=== PATIENT | male | born 1955 | race Caucasian/White ===

== ENCOUNTER 2022-11-05 05:00 | Inpatient (IN) | payer MEDICARE, MEDICAID ==
[2022-10-30 12:12] LABS: BASOPHILS # (AUTO) 0.1 X10'3 (0-0.2); BASOPHILS % (AUTO) 1.1 % (0-1); EOSINOPHILS # (AUTO) 0.4 X10'3 (0-0.9); EOSINOPHILS % (AUTO) 4.6 % (0-6); LYMPHOCYTES # (AUTO) 2.7 X10'3 (1.1-4.8); LYMPHOCYTES % (AUTO) 30.4 % (21-51); MEAN CORPUSCULAR HEMOGLOBIN 33.2 PG (27.0-31.0); MEAN CORPUSCULAR HGB CONC 33.9 g/dL (33.0-36.5); MEAN CORPUSCULAR VOLUME 98.2 FL (78-98); MEAN PLATELET VOLUME 8.5 FL (7.4-10.4); MONOCYTES # (AUTO) 0.9 X10'3 (0-0.9); MONOCYTES % (AUTO) 10.4 % (2-12); NEUTROPHILS # (AUTO) 4.8 X10'3 (1.8-7.7); NEUTROPHILS % (AUTO) 53.5 % (42-75); PRE OP HEMATOCRIT 36.9 % (42.0-52.0); PRE OP HEMOGLOBIN 12.5 g/dL (14.0-17.9); PRE OP PLATELET COUNT 322 X10'3 (140-440); RED BLOOD COUNT 3.76 X10'6 (4.70-6.10); RED CELL DISTRIBUTION WIDTH 14.2 % (11.5-14.5)
[2022-10-30 12:31] LABS: ALBUMIN 3.9 G/DL (3.4-5.0); ALKALINE PHOSPHATASE 58 IU/L (46-116); BLOOD UREA NITROGEN 34 MG/DL (7-18); BUN/CREATININE RATIO 20.9 (10.0-20.0); CALCIUM 8.8 MG/DL (8.5-10.1); CHLORIDE 103 MMOL/L (99-107); CREATININE 1.63 MG/DL (0.60-1.10); PRE OP ALT 26 U/L (30-65); PRE OP ANION GAP 6 (8-16); PRE OP AST 26 U/L (10-37); PRE OP BILIRUB, TOTAL 0.3 MG/DL (0.0-1.0); PRE OP GLUCOSE 95 MG/DL (70-104); PRE OP POTASSIUM 4.1 MMOL/L (3.4-5.1); PRE OP SODIUM 136 MMOL/L (135-145); TOTAL CARBON DIOXIDE 26.9 MMOL/L (24-32); TOTAL PROTEIN 7.8 G/DL (6.4-8.2); eGFR 42 ML/MIN
[~2022-11-05] VITALS: Ht 175.3 cm; Wt 63.5 kg
[2022-11-05] VITALS (27 sets, daily range): BP systolic 111–215; BP diastolic 55–95
[~2022-11-05 05:00] MED LIST: ASPI81TA61 PO; LEVO75TA7 PO; LISI1TAB51 PO; METO-395 PO; PRAV20TA4 PO
[2022-11-05] MEDS ORDERED: vancomycin/NS 1 GM in NS 250 ML IV ONE (05:30)
[2022-11-05] MEDS ORDERED: normal saline 1000ml 500 ML IV SCH (05:30)
[2022-11-05] MEDS ORDERED: cefazolin 2gm/D5W 100mL 100 ML IV ONE (05:30)
[2022-11-05] MEDS ORDERED: DOCUMENT DATE & TIME OF BETA-BLOCKER PO ONE (05:30)
[2022-11-05] MEDS ORDERED: famotidine 20mg tablet PO ONE (05:30)
--- NOTE | 2022-11-05 05:35 | NUR ---
PT ARRIVED TO [facility] UNIT FOR R MARK. PT COMPLETED 5 DAYS OF HIBICLENS SHOWERS AND 5 DAYS OF BID NASAL OINTMENT. PT CSM W/N/L AND BILATERAL PEDAL PULSES STRONG AND MARKED. Addendum: 11/05/22 at 0941 by Sonja Caputo RN Amended: Links added.
[2022-11-05] MEDS ORDERED: vancomycin 1,000mg inj ONE (06:49)
[2022-11-05] MEDS ORDERED: tranexamic acid 100mg/ml inj. ONE (06:49)
[2022-11-05] MEDS ORDERED: ePHEDrine 50MG/ML INJ. ONE (07:32)
[2022-11-05] MEDS ORDERED: MIDAZolam 1mg/ml 10ml vial ONE (07:33)
[2022-11-05] MEDS ORDERED: fentaNYL/PF 50MCG/1 ML 2ML syringe ONE (07:34)
--- NOTE | 2022-11-05 08:30 | NUR ---
Patient family at bedside, Daughter x2 and brother. Patients daughter Priti did not want me to turn patient at this time.
[2022-11-05] MEDS ORDERED: meperidine/PF 25mg/ml syringe IV PRN ×2 (08:40)
[2022-11-05] MEDS ORDERED: ringers solution, lacted 1,000 ML IV SCH (08:40)
[2022-11-05] MEDS ORDERED: proCHLORperazine 10 MG/2 ml inj IV PRN (08:40)
[2022-11-05] MEDS ORDERED: ondansetron/PF 4mg/2ml inj IV PRN ×2 (08:40→11:00)
[2022-11-05] MEDS ORDERED: morphine 2 MG/ML inj. syringe IV PRN (08:40)
[2022-11-05] MEDS ORDERED: BUPIVAcaine/PF 7.5mg/ml (0.75%) 10ml vial ONE (09:58)
[2022-11-05] MEDS ORDERED: 0.9 % SODIUM CHLORIDE 10 ML VIAL ONE (09:58)
[2022-11-05] MEDS ORDERED: propofol inj 20 ML IV ONE (09:58)
[2022-11-05] MEDS ORDERED: acetaminophen 325mg tablet PO PRN (11:00)
[2022-11-05] MEDS ORDERED: oxyCODONE IR 5mg (immed. release) tablet PO PRN (11:00)
[2022-11-05] MEDS ORDERED: diphenhydrAMINE 25mg capsule PO PRN ×2 (11:00)
[2022-11-05] MEDS ORDERED: HYDROmorphone inj. 0.5 MG/0.5 ML DISP.SYRIN IV PRN (11:00)
[2022-11-05] MEDS ORDERED: magnesium hydroxide 30ml (MOM) UD suspension PO PRN (11:00)
[2022-11-05] MEDS ORDERED: bisacodyl 10mg suppository rectal RC PRN (11:00)
[2022-11-05] MEDS ORDERED: naloxone 0.4 mg/ml inj IV PRN (11:00)
[2022-11-05] MEDS ORDERED: HYDROmorphone 1 mg/ml syringe IV PRN (11:00)
[2022-11-05] MEDS: meperidine/PF 25mg/ml syringe IV PRN ×2 (11:26→11:36)
[2022-11-05] MEDS: morphine 4 MG/ML inj SYRINge IV PRN ×2 (11:29→11:36)
[2022-11-05] MEDS ORDERED: acetaminophen 1,000mg/100ml IV 100 ML IV ONE (11:45)
[2022-11-05] MEDS ORDERED: HYDROmorphone/PF 0.2 MG/ML SYRINGE IV PRN ×2 (11:45)
[2022-11-05] MEDS ORDERED: enalaprilat dihydrate 2.5mg/2ml vial IV ONE (12:20)
--- NOTE | 2022-11-05 13:03 | NUR ---
REPORT GIVEN AND ALL QUESTIONS ANSWERED. PATIENT TRANSFERRED TO SURG/ORTHO .LABELED BELONGINGS PRESENT AND DELIVERED TO ROOM. RN PRESENT ALL CRITERIA FOR TRANSFER BACK TO THE FLOOR HAS BEEN ACHIEVED. VSS. PAIN AT A TOLERABLE LEVEL. BED LOW, CALL LIGHT PRESENT AND 2 RAILS DOWN. RN AWARE THAT PATIENT HAS ARRIVED. TO ACCEPT CARE OF PATIENT. PATIENT VSS. 2 CANES AND THREE BAGS DELIVERED TO BAG. JOSEFINA LEONARD AWARE OF PATIENT AND HIS CURRENT STATUS. Addendum: 11/05/22 at 1321 by Guero Valderrama RN, RN Amended: Links added.
[2022-11-05] MEDS: acetaminophen 325mg tablet PO SCH ×2 (14:00→20:11)
[2022-11-05] MEDS ORDERED: tranexamic acid inj. 600 MG in normal saline 100ml IV soln 94 ML IV ONE (14:00)
--- NOTE | 2022-11-05 14:07 | NUR ---
Called Pharmacy re: Transexamic acid. Pharmacy will bring to the floor.
[2022-11-05] MEDS: gabapentin 300mg capsule PO SCH ×2 (14:43→20:11)
[2022-11-05] MEDS: oxyCODONE IR 5mg (immed. release) tablet PO PRN (14:44)
--- NOTE | 2022-11-05 16:40 | NUR ---
Clled Dr. Esclaante in re: to patient being hypertensive post op. Receive a IV dose of Vasotec in PACU 3 hours ago. Patient has been running in the systolic level of 180's-200. Asymptomatic, PL has been 6-10, administered PO Oxycodone, tolerated well with some relief. Dr. Escalante okayed for IV Hydralazine 10 mg q6 PRN. Will CTM
[2022-11-05] MEDS ORDERED: hydrALAZINE 20mg/ml inj. IV PRN (16:50)
[2022-11-05] MEDS: ceFAZolin/D5W- 1GM premix 50 ML IV SCH (17:15)
--- NOTE | 2022-11-05 18:17 | NUR ---
Problems reprioritized. Patient report given, questions answered & plan of care reviewed with HORACIO Uribe.
--- NOTE | 2022-11-05 18:30 | NUR ---
Patient in room ORTHO 4015. I have received report from CHAPARRO GUNDERSON and had the opportunity to ask questions and assume patient care.
[2022-11-05] MEDS ORDERED: vancomycin/NS 1 GM ADD-VANTAGE 250 ML IV SCH (20:00)
[2022-11-05] MEDS: sennosides 8.6mg tablet PO SCH (20:11)
[2022-11-06] MEDS: oxyCODONE IR 5mg (immed. release) tablet PO PRN ×2 (00:17→05:47)
[2022-11-06] MEDS: ceFAZolin/D5W- 1GM premix 50 ML IV SCH (00:19)
[2022-11-06 02:00] VITALS: BP 119/60
[2022-11-06] MEDS: acetaminophen 325mg tablet PO SCH ×4 (02:00→20:00)
[2022-11-06 06:00] VITALS: BP 120/54
--- NOTE | 2022-11-06 06:32 | NUR ---
Patient in room ORTHO 4015. I have received report from saqib cerrato rn and had the opportunity to ask questions and assume patient care.
[2022-11-06] MEDS: gabapentin 300mg capsule PO SCH (07:36)
[2022-11-06] MEDS: metoprolol succinate 25mg (24-HOUR) SR. Tablet PO SCH (07:44)
[2022-11-06] MEDS: lisinopril 20mg tablet PO SCH (07:45)
[2022-11-06] MEDS: levoTHYROXINE 75mcg tablet PO SCH (07:53)
[2022-11-06] MEDS: atorvastatin 10mg tablet PO SCH (08:00)
[2022-11-06] MEDS ORDERED: HYDROchlorothiazide 12.5mg capsule PO SCH (08:00)
--- NOTE | 2022-11-06 08:28 | NUR ---
made dr briones aware that held pts bp meds due to bp being below parameters
[2022-11-06] MEDS ORDERED: baclofen 10mg tablet PO PRN (08:30)
[2022-11-06 10:00] VITALS: BP 98/62
--- NOTE | 2022-11-06 10:18 | NUR ---
Joint surgery consult: Pt s/p R hip surgery this admit per EMR. Pt seen by RD for written/verbal high protein diet ed w/ RD contact information provided. Pt reports has protein drinks ready at home and MVI as well. RD encouraged pt to contact dietitian's office if nutrition questions/concerns. Noted hx etoh w/ MCV 98.2 pre-op 10/30 in EMR; ODALIS d/w RN who reports prior hx not current. Addendum: 11/06/22 at [address] Amended: Links added.
[2022-11-06] MEDS ORDERED: oxyCODONE IR 5mg (immed. release) tablet PO PRN (12:45)
[2022-11-06] MEDS ORDERED: normal saline 1000ml 1,000 ML IV ONE (12:45)
[2022-11-06 13:58] LABS: BASOPHILS % (AUTO) 0.4 % (0-1); EOSINOPHILS % (AUTO) 0.2 % (0-6); HEMATOCRIT 32.9 % (42.0-52.0); LYMPHOCYTES # (AUTO) 1.5 X10'3 (1.1-4.8); LYMPHOCYTES % (AUTO) 12.1 % (21-51); MEAN CORPUSCULAR HEMOGLOBIN 32.7 PG (27.0-31.0); MEAN CORPUSCULAR HGB CONC 33.4 g/dL (33.0-36.5); MEAN PLATELET VOLUME 8.7 FL (7.4-10.4); MONOCYTES # (AUTO) 1.2 X10'3 (0-0.9); MONOCYTES % (AUTO) 10.1 % (2-12); NEUTROPHILS # (AUTO) 9.3 X10'3 (1.8-7.7); NEUTROPHILS % (AUTO) 77.2 % (42-75); PLATELET COUNT 238 X10'3 (140-440); RED BLOOD COUNT 3.35 X10'6 (4.70-6.10); RED CELL DISTRIBUTION WIDTH 13.9 % (11.5-14.5); WHITE BLOOD COUNT 12.1 X10'3 (4.5-11.0)
[2022-11-06 14:00] VITALS: BP 114/64
[2022-11-06 14:13] LABS: ALANINE AMINOTRANSFERASE 19 U/L (12-78); ALBUMIN 2.8 G/DL (3.4-5.0); ALBUMIN/GLOBULIN RATIO 0.9 (1.1-1.5); ALKALINE PHOSPHATASE 50 IU/L (46-116); ANION GAP 9 (8-16); ASPARTATE AMINO TRANSFERASE 42 U/L (10-37); BILIRUBIN,TOTAL 0.5 MG/DL (0.1-1.0); BLOOD UREA NITROGEN 22 MG/DL (7-18); BUN/CREATININE RATIO 16.7 (10.0-20.0); CALCIUM 8.3 MG/DL (8.5-10.1); CHLORIDE 99 MMOL/L (99-107); CREATININE 1.32 MG/DL (0.60-1.10); GLUCOSE 128 MG/DL (70-104); SODIUM 133 MMOL/L (135-145); TOTAL CARBON DIOXIDE 24.9 MMOL/L (24-32); eGFR 54 ML/MIN
[2022-11-06] MEDS: ketorolac tromethamine 15mg/ml inj. IV SCH ×2 (15:21→21:15)
[2022-11-06 18:00] VITALS: BP 127/66
--- NOTE | 2022-11-06 18:49 | NUR ---
Problems reprioritized. Patient report given, questions answered & plan of care reviewed with saqib cerrato rn.
[2022-11-06] MEDS ORDERED: enoxaparin 30mg/0.3ml syringe SUBCUT SCH (20:00)
[2022-11-06] MEDS ORDERED: gabapentin 300mg capsule PO SCH (21:00)
[2022-11-06] MEDS: sennosides 8.6mg tablet PO SCH (21:12)
[2022-11-06] MEDS: celeCOXIB 100mg capsule PO SCH (21:13)
[2022-11-06 22:00] VITALS: BP 132/63
[2022-11-07] MEDS: acetaminophen 325mg tablet PO SCH ×2 (02:00→07:34)
[2022-11-07 06:00] VITALS: BP 127/66
--- NOTE | 2022-11-07 06:46 | NUR ---
Patient in room ORTHO 4015. I have received report from saqib cerrato rn and had the opportunity to ask questions and assume patient care.
[2022-11-07 06:49] LABS: BASOPHILS # (AUTO) 0.1 X10'3 (0-0.2); BASOPHILS % (AUTO) 0.5 % (0-1); EOSINOPHILS # (AUTO) 0.2 X10'3 (0-0.9); EOSINOPHILS % (AUTO) 1.6 % (0-6); HEMATOCRIT 30.7 % (42.0-52.0); HEMOGLOBIN 10.3 g/dl (14.0-17.9); LYMPHOCYTES # (AUTO) 2.7 X10'3 (1.1-4.8); MEAN CORPUSCULAR HEMOGLOBIN 32.7 PG (27.0-31.0); MEAN CORPUSCULAR HGB CONC 33.5 g/dL (33.0-36.5); MEAN CORPUSCULAR VOLUME 97.6 FL (78-98); MEAN PLATELET VOLUME 9.2 FL (7.4-10.4); MONOCYTES # (AUTO) 1.4 X10'3 (0-0.9); MONOCYTES % (AUTO) 11.5 % (2-12); NEUTROPHILS # (AUTO) 7.5 X10'3 (1.8-7.7); NEUTROPHILS % (AUTO) 63.4 % (42-75); PLATELET COUNT 214 X10'3 (140-440); RED BLOOD COUNT 3.15 X10'6 (4.70-6.10); WHITE BLOOD COUNT 11.9 X10'3 (4.5-11.0)
[2022-11-07 07:18] LABS: ALANINE AMINOTRANSFERASE 17 U/L (12-78); ALBUMIN 2.6 G/DL (3.4-5.0); ALBUMIN/GLOBULIN RATIO 0.8 (1.1-1.5); ALKALINE PHOSPHATASE 48 IU/L (46-116); ANION GAP 10 (8-16); ASPARTATE AMINO TRANSFERASE 40 U/L (10-37); BILIRUBIN,TOTAL 0.4 MG/DL (0.1-1.0); BLOOD UREA NITROGEN 25 MG/DL (7-18); BUN/CREATININE RATIO 17.1 (10.0-20.0); CALCIUM 8.4 MG/DL (8.5-10.1); CHLORIDE 101 MMOL/L (99-107); CREATININE 1.46 MG/DL (0.60-1.10); GLUCOSE 93 MG/DL (70-104); SODIUM 134 MMOL/L (135-145); TOTAL CARBON DIOXIDE 22.8 MMOL/L (24-32); eGFR 48 ML/MIN
[2022-11-07 07:30] VITALS: BP 90/57
[2022-11-07] MEDS: levoTHYROXINE 75mcg tablet PO SCH (07:30)
[2022-11-07] MEDS: celeCOXIB 100mg capsule PO SCH (07:31)
[2022-11-07] MEDS: atorvastatin 10mg tablet PO SCH (07:31)
[2022-11-07] MEDS: metoprolol succinate 25mg (24-HOUR) SR. Tablet PO SCH (07:34)
[2022-11-07] MEDS: lisinopril 20mg tablet PO SCH (07:34)
[2022-11-07] MEDS ORDERED: DOCU-148 PO ×2 (09:35)
[2022-11-07 10:00] VITALS: BP 84/54
--- NOTE | 2022-11-07 10:01 | NUR ---
attempted to call dr briones about pts low bp at 10 am vitals due to pt suppose to be going home. pt did not get any bp meds this am
[2022-11-07] MEDS ORDERED: acetaminophen 325mg tablet PO PRN (11:00)
--- NOTE | 2022-11-07 12:28 | NUR ---
per dr briones, stated to just educate pt in regards to his bp being low 84/54. tell him to drink lots of fluids and check bp before taking meds and follow parameters for holding. will educate pt per
--- NOTE | 2022-11-07 13:54 | NUR ---
pt is stable for dc, iv is dc, all dc info gone over and education provided, pt took home meds from pharmacy with him and all belongings, he was wheeled down to the lobby in a wheelchair and left with a friend in a private vehicle. all medications needed were picked up prior to surgery,
== END 2022-11-07 12:55 | disposition home or self-care (01) | DRG 470 ==
LOC: UNDOADMIN 05:00 → PAS IN 05:00 → ORTHO 4S 13:31
PROVIDERS: ADMIT Orthopaedic Surgery; ATTEND Orthopaedic Surgery
PROC: 3E0T3BZ Introduction of Anesthetic Agent into Peripheral Nerves and Plexi, Percutaneous Approach (ICD-10-PCS; 2022-11-05)
PROC: 3E0T33Z Introduction of Anti-inflammatory into Peripheral Nerves and Plexi, Percutaneous Approach (ICD-10-PCS; 2022-11-05)
PROC: 0SR902A Replacement of Right Hip Joint with Metal on Polyethylene Synthetic Substitute, Uncemented, Open Approach (ICD-10-PCS; principal; 2022-11-05 07:32)
DX: M16.11 Unilateral primary osteoarthritis, right hip (principal); R11.2 Nausea with vomiting, unspecified; R42 Dizziness and giddiness
CPT/HCPCS: 36415; 72170; 80053; 82948; 84443; 85025; 86885; 86900; 86901; 87081; 93005; 97110; 97116; 97161; 97530; A4215; A4615; A4618; A6253; A6258; A6449; A7000; C1758; C1776; G0378; J0131; J0360; J0690; J1170; J1650; J1885; J2175; J2250; J2270; J2405; J2704; J3010; J3370; J3490; J7030; J7120

== ENCOUNTER 2022-11-14 17:02 | Inpatient (IN) | payer MEDICARE, MEDICAID ==
[~2022-11-14] VITALS: Ht 175.3 cm; Wt 63.0 kg
[~2022-11-14 17:02] MED LIST changes: +DOCU-148 PO
[2022-11-14] MEDS ORDERED: normal saline 1000ML IV soln IVB ONE (17:35)
[2022-11-14 18:01] LABS: BASOPHILS # (AUTO) 0.1 X10'3 (0-0.2); BASOPHILS % (AUTO) 0.4 % (0-1); EOSINOPHILS # (AUTO) 0.1 X10'3 (0-0.9); EOSINOPHILS % (AUTO) 0.9 % (0-6); HEMATOCRIT 31.5 % (42.0-52.0); HEMOGLOBIN 10.4 g/dl (14.0-17.9); LYMPHOCYTES % (AUTO) 19.4 % (21-51); MEAN CORPUSCULAR HEMOGLOBIN 32.4 PG (27.0-31.0); MEAN CORPUSCULAR VOLUME 98.2 FL (78-98); MEAN PLATELET VOLUME 7.6 FL (7.4-10.4); MONOCYTES # (AUTO) 1.3 X10'3 (0-0.9); MONOCYTES % (AUTO) 8.6 % (2-12); NEUTROPHILS % (AUTO) 70.7 % (42-75); PLATELET COUNT 486 X10'3 (140-440); WHITE BLOOD COUNT 15.5 X10'3 (4.5-11.0)
[2022-11-14] MEDS ORDERED: ondansetron/PF 4mg/2ml inj IV ONE (18:05)
[2022-11-14 18:20] LABS: APTT 27 SECONDS (22-32)
[2022-11-14] MEDS: morphine 4 MG/ML inj SYRINge IV PRN ×2 (18:31→20:28)
[2022-11-14 18:32] LABS: ALANINE AMINOTRANSFERASE 39 U/L (12-78); ALBUMIN 3.5 G/DL (3.4-5.0); ALBUMIN/GLOBULIN RATIO 0.8 (1.1-1.5); ALKALINE PHOSPHATASE 71 IU/L (46-116); ANION GAP 15 (8-16); ASPARTATE AMINO TRANSFERASE 32 U/L (10-37); BILIRUBIN,TOTAL 0.4 MG/DL (0.1-1.0); BLOOD UREA NITROGEN 52 MG/DL (7-18); BUN/CREATININE RATIO 25.5 (10.0-20.0); CALCIUM 9.1 MG/DL (8.5-10.1); CHLORIDE 97 MMOL/L (99-107); CREATININE 2.04 MG/DL (0.60-1.10); GLUCOSE 115 MG/DL (70-104); SODIUM 134 MMOL/L (135-145); TOTAL CARBON DIOXIDE 21.9 MMOL/L (24-32); TOTAL PROTEIN 7.9 G/DL (6.4-8.2); eGFR 33 ML/MIN
[2022-11-14 18:34] LABS: MAGNESIUM 2.5 MG/DL (1.5-2.4)
[2022-11-14] MEDS ORDERED: HYDROcodone/acetaminophen 10/325mg tab PO ONE (20:30)
[2022-11-14] MEDS ORDERED: HYDROcodone/acetaminophen 10/325mg tab PO PRN (22:40)
[2022-11-14] MEDS ORDERED: HYDROmorphone/PF 0.2 MG/ML SYRINGE IV PRN (22:40)
[2022-11-14] MEDS ORDERED: PERFLUTREN PROTEIN-A MICROSPHR (Optison) 0.22 MG/ML 3ML VIAL IV ONE (22:40)
[2022-11-14] MEDS ORDERED: potassium Cl 20 mEq SR tablet PO PRN ×2 (22:40)
[2022-11-14] MEDS ORDERED: magnesium Cl slow-release 64mg tablet PO PRN (22:40)
[2022-11-14] MEDS ORDERED: ondansetron/PF 4mg/2ml inj IV PRN (22:40)
[2022-11-14] MEDS ORDERED: potassium Cl 40MEQ/1/2NS 520ml 520 ML IV PRN (22:40)
[2022-11-14] MEDS ORDERED: acetaminophen 325mg tablet PO PRN ×2 (22:40)
[2022-11-14] MEDS ORDERED: mag hydrox/Alum hydrox/simeth 30ml oral suspension PO PRN (22:40)
[2022-11-14] MEDS ORDERED: HYDROmorphone inj. 0.5 MG/0.5 ML DISP.SYRIN IV PRN (22:40)
[2022-11-14] MEDS ORDERED: HYDROcodone/acetaminophen 5mg/325mg tablet PO PRN (22:40)
[2022-11-14] MEDS ORDERED: ENOX40DI11 SQ (23:03)
[2022-11-14] MEDS ORDERED: NITR0.4T51 SL (23:03)
[2022-11-14] MEDS ORDERED: DOCU100C40 PO (23:04)
[2022-11-15] MEDS ORDERED: nitroGLYCERIN 0.4mg SUBLingual tab SL PRN (00:25)
[2022-11-15] MEDS: normal saline 1000ml 1,000 ML IV SCH ×2 (00:28→11:10)
[2022-11-15 00:30] VITALS: BP 126/49
[2022-11-15] MEDS ORDERED: enoxaparin 40mg/0.4ml syringe SQ SCH (00:35)
--- NOTE | 2022-11-15 06:24 | NUR ---
Problems reprioritized. Patient report given, questions answered & plan of care reviewed with Mike LEONARD.
[2022-11-15 06:37] LABS: BASOPHILS # (AUTO) 0.1 X10'3 (0-0.2); BASOPHILS % (AUTO) 0.7 % (0-1); EOSINOPHILS # (AUTO) 0.3 X10'3 (0-0.9); EOSINOPHILS % (AUTO) 3.1 % (0-6); HEMATOCRIT 27.3 % (42.0-52.0); HEMOGLOBIN 9.2 g/dl (14.0-17.9); LYMPHOCYTES # (AUTO) 3.2 X10'3 (1.1-4.8); LYMPHOCYTES % (AUTO) 32.1 % (21-51); MEAN CORPUSCULAR HGB CONC 33.7 g/dL (33.0-36.5); MEAN CORPUSCULAR VOLUME 97.9 FL (78-98); MEAN PLATELET VOLUME 7.7 FL (7.4-10.4); MONOCYTES # (AUTO) 1.1 X10'3 (0-0.9); NEUTROPHILS # (AUTO) 5.3 X10'3 (1.8-7.7); NEUTROPHILS % (AUTO) 53.1 % (42-75); PLATELET COUNT 419 X10'3 (140-440); RED BLOOD COUNT 2.79 X10'6 (4.70-6.10); RED CELL DISTRIBUTION WIDTH 13.9 % (11.5-14.5)
[2022-11-15 06:51] LABS: ALANINE AMINOTRANSFERASE 32 U/L (12-78); ALBUMIN 2.8 G/DL (3.4-5.0); ALBUMIN/GLOBULIN RATIO 0.8 (1.1-1.5); ALKALINE PHOSPHATASE 60 IU/L (46-116); ANION GAP 8 (8-16); ASPARTATE AMINO TRANSFERASE 24 U/L (10-37); BILIRUBIN,TOTAL 0.4 MG/DL (0.1-1.0); BLOOD UREA NITROGEN 41 MG/DL (7-18); BUN/CREATININE RATIO 26.5 (10.0-20.0); CALCIUM 8.7 MG/DL (8.5-10.1); CHLORIDE 106 MMOL/L (99-107); CREATININE 1.55 MG/DL (0.60-1.10); GLUCOSE 91 MG/DL (70-104); MAGNESIUM 2.5 MG/DL (1.5-2.4); POTASSIUM 4.2 MMOL/L (3.5-5.1); SODIUM 140 MMOL/L (135-145); TOTAL CARBON DIOXIDE 25.8 MMOL/L (24-32); TOTAL PROTEIN 6.5 G/DL (6.4-8.2); eGFR 45 ML/MIN
[2022-11-15 07:00] VITALS: BP 133/82
[2022-11-15] MEDS ORDERED: levoTHYROXINE 75mcg tablet PO SCH (07:30)
[2022-11-15] MEDS ORDERED: K and/or MAG REPLACEMENT MC SCH (08:00)
[2022-11-15] MEDS ORDERED: aspirin 81mg, enteric-coated 1 TAB TABLET.DR PO SCH (08:00)
[2022-11-15] MEDS ORDERED: docusate sod 100mg capsule PO SCH (08:00)
[2022-11-15] MEDS ORDERED: metoprolol succinate 25mg (24-HOUR) SR. Tablet PO SCH (08:00)
[2022-11-15] MEDS ORDERED: pravastatin 40mg tablet PO SCH (08:00)
== END 2022-11-15 17:00 | disposition home or self-care (01) | DRG 312 ==
LOC: ER 17:03 → ED HOLD 23:05 → PCU 3S 23:48
PROVIDERS: ADMIT Family Medicine; ATTEND Internal Medicine
DX: R55 Syncope and collapse (principal); N17.0 Acute kidney failure with tubular necrosis; E03.9 Hypothyroidism, unspecified; E78.5 Hyperlipidemia, unspecified; I12.9 Hypertensive chronic kidney disease with stage 1 through stage 4 chronic kidney disease, or unspecified chronic kidney disease; I25.10 Atherosclerotic heart disease of native coronary artery without angina pectoris; F03.90 Unspecified dementia, unspecified severity, without behavioral disturbance, psychotic disturbance, mood disturbance, and anxiety; K59.00 Constipation, unspecified; W18.39XA Other fall on same level, initial encounter; M16.11 Unilateral primary osteoarthritis, right hip; S00.03XA Contusion of scalp, initial encounter; Z96.641 Presence of right artificial hip joint; F12.90 Cannabis use, unspecified, uncomplicated; N18.30 Chronic kidney disease, stage 3 unspecified; S09.90XA Unspecified injury of head, initial encounter; S70.01XA Contusion of right hip, initial encounter; Z80.0 Family history of malignant neoplasm of digestive organs; Z86.73 Personal history of transient ischemic attack (TIA), and cerebral infarction without residual deficits; Z95.1 Presence of aortocoronary bypass graft; Y93.89 Activity, other specified; Y92.098 Other place in other non-institutional residence as the place of occurrence of the external cause; Y99.8 Other external cause status; Z79.899 Other long term (current) drug therapy; Z86.16 Personal history of COVID-19; Z79.82 Long term (current) use of aspirin
CPT/HCPCS: 36415; 70450; 72192; 73502; 80053; 83735; 83880; 84484; 85025; 85610; 85730; 87081; 93306; 93880; 97116; 97161; 97530; 99285; A6258; G0378; J1650; J2270; J2405; J7030; J7040

== ENCOUNTER 2025-01-26 08:37 | Outpatient (CLI) | payer MEDICARE, MEDICAID ==
[~2025-01-26 08:37] MED LIST changes: -DOCU-148 PO; +DOCU100C40 PO; +ENOX40DI11 SQ; +NITR0.4T51 SL; +PRAV20TA17 PO; -PRAV20TA4 PO
--- NOTE | 2025-01-26 10:30 | RADIOLOGY REPORT ---
CLINICAL INFORMATION: LEFT HIP PAIN. TECHNIQUE: Axial CT images of the left hip were obtained without IV contrast. Coronal and sagittal reformatted images were obtained, reviewed, and stored. All CT scans at this medical facility are performed using dose modulation techniques as appropriate to a performed exam including the following: Automated exposure control was utilized; adjustment of the MA and/or KV according to patient size; and use of iterative reconstruction technique. CTDIvol = 13.05 mGy DLP = 342.89 mGy-cm COMPARISON: CT PELVIS on DOS: 11/14/22, PELVIS,LIMITED 1-2 VIEWS on DOS: 11/05/22, PELVIS,LIMITED 1-2 VIEWS on DOS: 11/05/22 FINDINGS: No evidence of acute fracture. Severe joint space narrowing in the left hip with severe joint space narrowing, subchondral sclerosis, subchondral cystic change, and marginal osteophytes. Large subchondral cyst in the anterior aspect of the femoral head measuring up to 3.5 cm in greatest dimension. Possible partial osseous fusion at the anterior superior aspect of the right hip joint. No significant joint effusion visualized. There is dense arterial calcification. Icae-vr-uddkcres fatty atrophy in the left gluteus minimus muscle. Partially visualized scattered colonic diverticula without adjacent inflammatory changes seen to suggest diverticulitis. There is mild circumferential thickening of the bladder wall. Partially visualized mesh from prior hernia repair. IMPRESSION: 1. No evidence of acute bony abnormality. 2. 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 Can not exclude partial osseous fusion at the anterior superior aspect of the joint. 3. Large subchondral cyst in the femoral head. 4. Additional findings as detailed above.
== END 2025-01-26 23:59 | disposition home or self-care (01) ==
LOC: RAD 08:37
PROVIDERS: ATTEND Family Medicine
DX: M16.12 Unilateral primary osteoarthritis, left hip (principal); M24.652 Ankylosis, left hip; M25.852 Other specified joint disorders, left hip; M25.752 Osteophyte, left hip; M25.552 Pain in left hip; M62.58 Muscle wasting and atrophy, not elsewhere classified, other site; K57.30 Diverticulosis of large intestine without perforation or abscess without bleeding; N32.89 Other specified disorders of bladder
CPT/HCPCS: 73700